=== PATIENT | female | born 1935 | race Caucasian/White ===

== ENCOUNTER 2020-03-09 07:44 | Outpatient (CLI) | payer MEDICARE, OTHER, SELFPAY ==
--- NOTE | ~2020-03-09 | DEXA_ITS ---
Bone Density Report Name: Sangeeta Toledo Age: 84 Sex: Female Ethnicity: White Date of : 1935 Indication: postmenopausal; height loss; Referring Provider: JOSE VALENTE Study: Bone densitometry was performed. Exam Date: March 09, 2020 Accession number: [id number] Bone Density: Region BMD T-score Z-score Classification AP Spine (L1-L4) 1.354 2.8 5.6 Normal Femoral Neck (Left) 0.814 -0.3 2.1 Normal Total Hip (Left) 0.981 0.3 2.5 Normal Total Hip Bilateral Avg 0.981 0.3 2.5 Normal Femoral Neck (Right) 0.739 -1.0 1.4 Normal Total Hip (Right) 0.980 0.3 2.5 Normal World Health Organization criteria for BMD impression classify patients as: Normal (T-score at or above -1.0), Osteopenia (T-score between -1.0 and -2.5), or Osteoporosis (T-score at or below -2.5). 10-year Fracture Risk: FRAX not reported because: All T-scores for Spine Total, Hip Total, Femoral Neck at or above -1.0 Previous Exams: Region Exam Age BMD T-score BMD Change BMD Change Date g/cm2 vs Baseline vs Previous AP Spine(L1-L4) 03/09/2020 84 1.354 2.8 0.065(5.0%)# -0.027(-2.0%)* 09/28/2016 81 1.381 3.0 0.092(7.2%)# 0.112(8.8%)# 10/03/2010 75 1.270 2.0 -0.019(-1.5%) -0.032(-2.5%)* 06/11/2006 70 1.302 2.3 0.013(1.0%) 0.013(1.0%) 05/04/2003 67 1.289 2.2 Total Hip(Left) 03/09/2020 84 0.981 0.3 -0.008(-0.8%)# 0.019(1.9%) 09/28/2016 81 0.962 0.2 -0.027(-2.7%)# 0.001(0.1%)# 10/03/2010 75 0.961 0.2 -0.028(-2.8%)* -0.091(-8.7%)* 06/11/2006 70 1.052 0.9 0.063(6.4%)* 0.063(6.4%)* 05/04/2003 67 0.989 0.4 Total Hip(Right) 03/09/2020 84 0.980 0.3 0.056(6.1%)# 0.047(5.0%)* 09/28/2016 81 0.933 -0.1 0.010(1.1%)# -0.016(-1.7%)# 10/03/2010 75 0.949 0.1 0.026(2.8%) 0.026(2.8%) 06/11/2006 70 0.923 -0.2 0.000(0.0%) 0.000(0.0%) 05/04/2003 67 0.923 -0.2 *Denotes significance at 95% confidence level, LSC for AP Spine = 0.022 g/cm2, LSC for Total Hip = 0.027 g/cm2 Clinical Information Provided by Patient: Patient maximum height was 65.5 Menopause Age: 42 Onset of menses at age 14 Number of children 5 Impression: The patient has normal bone mass. The BMD for the AP Spine(L1-L4) decreased, changing by -2.0% since the last DXA exam. Discussion: BONE DENSITY IS ABOVE THE MINIMUM DESIRABLE LEVEL AT ALL SKELETAL SITES TESTED. This patient?s
== END 2020-03-09 07:45 | disposition home or self-care (01) ==
PROVIDERS: PCP Internal Medicine; Visit Provider Internal Medicine
DX: Z78.0 Asymptomatic menopausal state (principal)
CPT/HCPCS: 77080

== ENCOUNTER 2022-02-05 09:13 | Outpatient (CLI) | payer MEDICARE, OTHER, SELFPAY ==
[2022-02-05 20:09] LABS: Alanine Aminotransferase 30 U/L (6-35); Albumin Level 4.3 g/dL (3.5-5.1); Alkaline Phosphatase 71 U/L (38-126); Anion Gap 11 mmol/L (8-16); Aspartate Amino Transferase 52 U/L (14-36); Bilirubin,Total 0.8 mg/dL (0.2-1.3); Blood Urea Nitrogen 29 mg/dL (7-17); Calcium 9.4 mg/dL (8.4-10.2); Carbon Dioxide 26 mmol/L (22-30); Chloride 101 mmol/L (98-107); Cholesterol 278 mg/dL (0-200); Estimated Glomerular Filt Rate 39; Glucose 157 mg/dL (65-110); HDL Direct 53 mg/dL; Potassium 4.7 mmol/L (3.4-5.0); Sodium 138 mmol/L (137-145); Triglycerides 134 mg/dL (<150)
[2022-02-05 20:20] LABS: LDL Cholesterol Direct 161 mg/dL
[2022-02-05 21:22] LABS: Hemoglobin A1C 6.4 % (<5.7)
== END 2022-02-05 09:14 | disposition home or self-care (01) ==
PROVIDERS: PCP Family Medicine; Visit Provider Family Medicine
DX: E78.2 Mixed hyperlipidemia (principal); E11.9 Type 2 diabetes mellitus without complications; E03.9 Hypothyroidism, unspecified; I10 Essential (primary) hypertension
CPT/HCPCS: 36415; 80053; 80061; 83036; 84443

== ENCOUNTER 2023-02-19 08:39 | Outpatient (CLI) | payer MEDICARE, OTHER, SELFPAY ==
[2023-02-19 18:48] LABS: Alanine Aminotransferase 26 U/L (6-35); Albumin Level 4.5 g/dL (3.5-5.1); Alkaline Phosphatase 75 U/L (38-126); Anion Gap 6 mmol/L (8-16); Aspartate Amino Transferase 35 U/L (14-36); Bilirubin,Total 0.9 mg/dL (0.2-1.3); Blood Urea Nitrogen 28 mg/dL (7-17); Calcium 9.5 mg/dL (8.4-10.2); Carbon Dioxide 31 mmol/L (22-30); Chloride 97 mmol/L (98-107); Cholesterol 287 mg/dL (0-200); Estimated Glomerular Filt Rate 36; Glucose 154 mg/dL (65-110); HDL Direct 52 mg/dL; Potassium 4.6 mmol/L (3.4-5.0); Sodium 134 mmol/L (137-145); Triglycerides 219 mg/dL (<150)
[2023-02-19 19:07] LABS: LDL Cholesterol Direct 168 mg/dL
[2023-02-19 19:22] LABS: Hemoglobin A1C 6.6 % (<5.7)
== END 2023-02-19 08:40 | disposition home or self-care (01) ==
LOC: ANHGOSHLAB 08:41
PROVIDERS: PCP Family Medicine; Visit Provider Family Medicine
DX: N18.2 Chronic kidney disease, stage 2 (mild) (principal); Z13.220 Encounter for screening for lipoid disorders; E11.9 Type 2 diabetes mellitus without complications; Z13.29 Encounter for screening for other suspected endocrine disorder; Z13.228 Encounter for screening for other metabolic disorders
CPT/HCPCS: 36415; 73564; 80053; 80061; 83036; 84443

== ENCOUNTER 2023-02-19 11:13 | Outpatient (CLI) | payer MEDICARE, OTHER, SELFPAY ==
--- NOTE | ~2023-02-19 | XR_ITS ---
Left Knee Technique: AP, lateral, and sunrise views were obtained. Clinical History: Pain Findings: No fracture or dislocation is seen. Osseous alignment is anatomic. There is moderate degene rative change of the medial and patellofemoral compartment. There is mild degenerative change of the lateral compartment.. Soft tissues are unremarkable. No joint effusion is seen. Impression: Tricompartmental osteoarthritis, as detailed above. Reviewed, dictated and finalized at location M. Impression: Tricompartmental osteoarthritis, as detailed above.
== END 2023-02-19 11:14 | disposition home or self-care (01) ==
PROVIDERS: PCP Family Medicine; Visit Provider Family Medicine
DX: M17.12 Unilateral primary osteoarthritis, left knee (principal)
CPT/HCPCS: 73564

== ENCOUNTER 2024-09-02 08:03 | Outpatient (CLI) | payer OTHER, SELFPAY ==
--- NOTE | ~2024-09-02 | XR_ITS ---
Right Shoulder Technique: AP and scapular Y views were obtained. Clinical History: Pain Findings: No fracture or dislocation is seen. Osseous alignment is anatomic. The glenohumeral joint i s intact. There is mild to moderate AC joint degenerative change. Soft tissues are unremarkable. Impression: Umhk-jk-pjxawqsi AC joint degenerative change. Reviewed, dictated and finalized at location . Impression: Gcnd-vz-sqrwnqxg AC joint degenerative change.
== END 2024-09-02 08:04 | disposition home or self-care (01) ==
LOC: MICIMG 08:04
PROVIDERS: PCP Internal Medicine; Visit Provider Nurse Practitioner
DX: M19.011 Primary osteoarthritis, right shoulder (principal)
CPT/HCPCS: 73030

== ENCOUNTER 2024-09-25 10:00 | Outpatient (RCR) | payer MEDICARE, OTHER, SELFPAY ==
--- NOTE | 2024-09-03 08:53 | OPREHPOC ---
Outpatient Therapy Plan of Care This is a Multidisciplinary Plan of Care that may contain components documented by all disciplines (PT, OT, and ST.) PT Problem 1 PT Problem #1 Knowledge Deficit PT Goal 1 Goal / Goal Update *indepdendent with HEP Target Visit 6 PT Problem 2 PT Problem #2 Impaired Strength PT Goal 1 Goal / Goal Update *increase bilateral hip and knee strength to 4+/5; pt perform 20 reps of mat exercises with good stability Target Visit 6 PT Problem 3 PT Problem #3 Impaired Functional Mobility PT Goal 1 Goal / Goal Update *improve balance and mobility skills, to decrease fall risk and improve community mobility 1* Moran balance/gait score of 55/56 2* 2 minute walking test distance of 575' without SOB reported 3* single leg standing R x 6 seconds 4* single leg standing L x 6 seconds Target Visit 6
--- NOTE | 2024-09-03 08:53 | PTOPEVAL1 ---
Assessment and note entered by Leyla Francis, PT Evaluation Information Assessment Status Evaluation ICD-10 Condition Codes (PT) Abnormalities of gait and mobility R26.9,Weakness R53.1 Onset Mar 2024 Subjective Information gradual more problems with balance and walking- when turn too quickly of move fast; in the past 6 months- have had 2 falls-when foot stick at [employer] [facility] outside, standing on wooden pallet and foot caught when went to walk; also have R shoulder pain- not due to a fall, to see ortho dr this afternoon; R handed and bowl- had to stop due to shoulder pain; have had knee pain in the past with cortisone shots, not had in over 2 years; recently R knee pain activity: bowls and golfs- 2-3x/wk; does not do any leg exercises; live alone, not require any assistance; Reported Pain Level Pain Score 0: Self Report Additional Pain Score Comments pain in both knees, R>L, at worst 1/10 with more activity; Assessment PT Clinical Summary Sangeeta has the diagnosis of decrease gait and balance skills. She reports 2 falls in the past 6 months. She is active and lives alone, and golfs and bowling 2-3x/week. Reports not walking much or doing any leg exercises. Recently has increased R shoulder pain and going to ortho dr this afternoon. With the evaluation: balance testin reps sit/ stand time of 14 seconds without use of UE/ WNL; Moran balance score of 51/56- difficulty with single leg and tandem standing; 2 minute walking test distance of 520' with report of SOB; decreased strength of bilateral hip extension and abduction motions. Skilled PT services are indicated to increase hip and trunk strength and improve dynamic and static standing balance, to improve safety with mobility and education for HEP. Plan of Care Interventions Neuro Re-education,Patient/Caregiver Education, Therapeutic Activities,Therapeutic Exercise PT Services Indicated Yes Treatment Frequency and 1-2x/wk for 6 visits Duration These treatments will address the objective and functional deficits as defined above. The patient will be advanced safely and appropriately in order for the patient to progress towards his/her prior level of function. Additional exercises will be introduced and as well as a comprehensive home exercise program upon discharge, if needed, to ensure carryover of functional gains achieved in the clinic. This treatment plan has been reviewed and agreement upon by the patient.
--- NOTE | 2024-09-25 10:44 | OPREHPOC ---
Outpatient Therapy Plan of Care This is a Multidisciplinary Plan of Care that may contain components documented by all disciplines (PT, OT, and ST.) PT Problem 1 PT Problem #1 Knowledge Deficit PT Goal 1 Goal / Goal Update *indepdendent with HEP 09-25-24 d/c goal met Target Visit 6 Progress Met PT Problem 2 PT Problem #2 Impaired Strength PT Goal 1 Goal / Goal Update *increase bilateral hip and knee strength to 4+/5; pt perform 20 reps of mat exercises with good stability 09-25-24 d/c goal met Target Visit 6 Progress Met PT Problem 3 PT Problem #3 Impaired Functional Mobility PT Goal 1 Goal / Goal Update *improve balance and mobility skills, to decrease fall risk and improve community mobility 1* Moran balance/gait score of 55/56 2* 2 minute walking test distance of 575' without SOB reported 3* single leg standing R x 6 seconds 4* single leg standing L x 6 seconds 09-25-24 d/c goals not met; improved with 1,3,4 Target Visit 6 Progress Not Met
--- NOTE | 2024-09-25 10:45 | PTOPDC ---
Assessment and note entered by Leyla Francis, PT Assessment Status Discharge ICD-10 Condition Codes (PT) Abnormalities of gait and mobility R26.9,Weakness R53.1 Onset Mar 2024 Subjective Information more stable with walking; the exercises have helped; improved since coming here; continue to have R shoulder pain--have not been bowling; Reported Pain Level Pain Score 0: Self Report Assessment PT Clinical Summary Sangeeta has received 6 PT sessions. Compared to initial evaluation: LE functional scale rating of 18% limitation in activity level; Moran balance score from 51 to 53/56; 2 minute walking test distance from 520' to 450'; single leg standing time from lift leg but not able to hold to R 4 and L 5 seconds; increase gross trunk and LE strength to 4+/5; slight loss of balance with turning 360', she tends to do too quickly; education completed for HEP and safety; The goals were partially achieved. Discharge PT services. She is to continue with the HEP. Plan of Care PT Services Indicated No
== END 2024-09-25 12:28 | disposition home or self-care (01) ==
LOC: ANHPT 10:00
PROVIDERS: PCP Internal Medicine; Visit Provider Internal Medicine
DX: Z47.89 Encounter for other orthopedic aftercare (principal); R26.89 Other abnormalities of gait and mobility
CPT/HCPCS: 97110; 97112; 97140; 97161; 97530

== ENCOUNTER 2025-02-13 10:23 | Emergency (ER) | payer MEDICARE, OTHER, SELFPAY ==
--- OUTSIDE RECORDS SUMMARY | 2025-02-13 10:26 | XMS_ITS | Encounter Summary ---
Author Organization [facility] Address [address] [place] [address] Care Team Providers Care Stitching Machine Setter Name Role Phone Unavailable Primary Care Provider Unavailabl e Encounter Details Date Type Department Care Team (Late st Contact Info) Description 02/11/2020 Lab Requisition [facility]erm[facility] Lab [address] [place] [address] Frantz Victoria MD [address] [place] [address] Social History Tobacco Use Types Packs/Day Years Used Date Smoking Tobacco: Never Assessed Comments Unknown Sex and Gender Information Value Date Recorded Sex Assigned at Not on file Legal Sex Female 6:09 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 Gender Identity Not on file Sexual Orientation Not on file documented as of this encounter Plan of Treatment Not on file documented as of this encounter Procedures Procedure Name Priority Date/Time Associated Diagnosis Comments DERMATOPATHOLOGY Routine 02/10/2020 12:0 0 AM CDT documented in this encounter Results * DERMATOPATHOLOGY (02/10/2020 12:00 AM CDT) Case Report Dermatopathology Report Case: [id number] Authorizing Provider: Frantz Victoria MD Collected: 02/10/2020 12:00 AM Ordering Location: [facility] Received: 02/11/2020 11:06 AM Pathologist: Hannah Sams MD Specimen: Skin, right forehead 0 3:36 PM CDT DERMATOPATHOLOGY LABORATORY Final Diagnosis Specimen A. SKIN, right forehead : EPIDERMOID CYST (L72.0) DERMAL FIBROSIS (L90.5) 0 3:36 PM CDT DERMATOPATHOLOGY LABORATORY at 1536 CDT Clinical History R/O BCC, DF, scar, o ther 0 3:36 PM CDT DERMATOPATHOLOGY LABORATORY Gross Description Specimen A: Received is one formalin filled container labeled with the patient's name and designated right forehead . The specimen consists of a punch biopsy measuring 4x4x7 mm, bisected and [id number]. Jar 0. 0 3:36 PM CDT DERMATOPATHOLOGY LABORATORY Microscopic Description Specimen A. SKIN, right forehead : Within the dermis, there is a space lined by epithelium that resembles normal epidermis and the infundibular portion of the hair follicle. TThere is focal dermal fibrosis. 0 3:36 PM CDT DERMATOPATHOLOGY LABORATORY Disclaimer An external and internal positive and negative controls are appropriate for the histochemical, immunohistochemical and immunofluorescence stain(s) in this case (if any), except where stated explicitly. The performance characteristics of the stain(s) cited in this report were developed and its performance characteristic determined by the Dermatopathology Laboratory at [facility], directed by Dr. Rupert Sams. These tests need not be, and therefore are not, approved by the [place] Food and Drug Administration. The tests are used for clinical purposes. Billing Codes Specimen Charges Stain Charges 88873 1 0 3:36 PM CDT DERMATOPATHOLOGY LABORATORY Embedded Images 0 3:36 PM CDT DERMATOPATHOLOGY LABORATORY Pathology/Cytolog y TISSUE SPECIMEN FROM SKIN / Unknown 02/10/2020 02/11/2020 11:06 AM CDT Frantz Victoria MD LAB - PATHOLOGY/CYTOLOGY ORD ERABLES Final Result DERMATOPATHOLOGY LABORATORY [facility] - Department of Dermatology [address] [place] [address], [facility] [phone] documented in this encounter Visit Diagnoses Not on filedocumented in this encounter
--- OUTSIDE RECORDS SUMMARY | 2025-02-13 10:26 | XMS_ITS | Clinical Summary ---
Author Organization [facility] Address [address] [place] [address] Care Team Providers Care Teacher Music Name Role Phone Blayne Byrnes MD Primary Care Provider [phone] Allergies Active Allergy Reactions Criticality Noted Date Comments Clindamycin Rash Low 10/05/2019 Statins Myalgias 10/05/2019 Medications levothyroxine 112 MCG tablet Take 112 mcg by mouth every morning. Active losartan 50 MG TABS 100 mg, hydroCHLOROthiazide 12.5 MG CAPS 12.5 mg Take by mouth daily. Active omeprazole 20 MG capsule Take 20 mg by mouth daily. Active fish oil 1000 MG Cap capsule Take by mouth daily. Active Multiple Vitamins-Minerals (CENTRUM SILVER OR) Active Magnesium 500 MG Cap Active Ipnuzuetf-Vbfjhozjgvr-R it D (OSTEO BI-FLEX ONE PER DAY OR) Active metFORMIN 500 MG tablet Take 500 mg by mouth daily with breakfast . Active Active Problems No known active problems Social History Tobacco Use Types Packs/Day Years Used Date Smoking Tobacco: Never Smokeless Tobacco: Never Alcohol Use Standard Drinks/Week Comments Yes 0 (1 standard drink = 0.6 oz pur e alcohol) Comments No Sex and Gender Information Value Date Recorded Sex Assigned at Not on file Legal Sex Female 3:01 PM CDT Gender Identity Not on file Sexual Orientation Not on file Last Filed Vital Signs Vital Sign Reading Time Taken Comments Blood Pressure 126/71 10/12/2019 9:31 AM CDT Pulse 69 10/12/2019 9:31 AM CDT Temperature 36.8 C (98.2 F) 10/12/2019 9:31 AM CDT Respiratory Rate 18 10/12/2019 9:31 AM CDT Oxygen Saturation 96% 10/12/2019 9:31 AM CDT Inhaled Oxygen Concentration - - Weight 92.5 kg (204 lb) 10/12/2019 8:16 AM CDT Height 166.4 cm (5' 5.5) 10/12/2019 8:16 AM CDT Body Mass Index 33.43 10/12/2019 8:16 AM CDT Plan of Treatment Health Maintenance Due Date Last Done Comments DTaP, Tdap and Td Vaccines ( 1 - Tdap) 1954 Pneumococcal Vaccine: 50+ Ye ars (1 of 1 - PCV) 09/15/1987 Zoster Vaccines (1 of 2) 09/15/1987 Annual Medicare Wellness Visit 2002 RSV Immunization or 60+ Years (1 - 1-dose 75+ series) 2012 COVID-19 Vaccine ( - 2023-2 5 season) 2025 Influenza Adult (#1) 2025 Meningococcal B Vaccine Aged Out No l onger eligible based on patient's age to complete this topic Meningococcal Vaccine Aged Out No stiven doris eligible based on patient's age to complete this topic RSV Immunizations Under 20 Months Aged Out No longer eligible based on patient's age to complete this topic Medical Devices Implanted Type Area Parimutuel Clerk Device Identifier Shelf Expiration Date Model / Serial / Lot Zlboo Implanted:Qty: 1 on 10/12/2019 by Daniel Denise MD at [facility] Left: Eye 01/12/2022 / [id number] / Insurance MEDICARE [employer] Care Teams Teacher Music Relationship Specialty Start Date End Date Blayne Byrnes MD [address] [place] [address] PCP - General INTERNAL MEDICINE 10/09/19
--- OUTSIDE RECORDS SUMMARY | 2025-02-13 10:26 | XMS_ITS | Encounter Summary ---
Author Organization [facility] Address [address] [place] [address] Care Team Providers Care Concrete Conveyor Operator Name Role Phone Unavailable Primary Care Provider Unavailabl e Encounter Details Date Type Department Care Team (Late st Contact Info) Description 08/29/2022 Lab Requisition [facility] DermPath Lab [address] [place] [id number] Frantz Victoria MD [address] [place] [address] Social History Tobacco Use Types Packs/Day Years Used Date Smoking Tobacco: Never Assessed Comments Unknown Sex and Gender Information Value Date Recorded Sex Assigned at Not on file 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 Gender Identity Not on file Sexual Orientation Not on file documented as of this encounter Plan of Treatment Not on file documented as of this encounter Procedures Procedure Name Priority Date/Time Associated Diagnosis Comments DERMATOPATHOLOGY Routine 08/28/2022 12:0 0 AM CDT documented in this encounter Results * DERMATOPATHOLOGY (08/28/2022 12:00 AM CDT) Case Report Dermatopathology Report Case: [id number] Authorizing Provider: Frantz Victoria MD Collected: 08/28/2022 12:00 AM Ordering Location: [facility]erm[facility] Lab Received: 08/29/2022 01:47 PM Pathologist: Nancy Jordan MD Specimens: A) - Skin, right cheek 4 am anterior to right ear B) - Skin, right forehead 3:10 PM CDT DERMATOPATHOLOGY LABORATORY Final Diagnosis Specimen A. SKIN, right cheek 4 am anterior to right ear: HEALING SKIN CHANGES AND DERMAL FIBROSIS (L90.5) GRANULOMATOUS DERMATITIS CONSISTENT WITH A RUPTURED CYST OR HAIR FOLLICLE (L72.0) (see microscopic description) Specimen B. SKIN, right forehead: ACTINIC KERATOSIS (L57.0) 3 3:10 PM T DERMATOPATHOLOGY LABORATORY at 1510 CDT Clinical History A-B: r/o bcc scc 3:10 PM CDT DERMATOPATHOLOGY LABORATORY Gross Description Specimen A: Received is one formalin filled container labeled with the patient's name and designated right cheek 4 am anterior to right ear. The specimen consists of a shave biopsy measuring 7x7x1 mm. Jar 0. Specimen B: Received is one formalin filled container labeled with the patient's name and designated right forehead. The specimen consists of a shave biopsy measuring 6x6x1 mm. Jar 0. 3:10 PM CDT DERMATOPATHOLOGY LABORATORY Microscopic Description Specimen A. SKIN, right cheek 4 am anterior to right ear: There is epidermal hyperplasia beneath which there are vascular proliferation, fibroblasts, and an edematous stroma. Lymphocytes, histiocytes, and multinucleated giant cells are present within the dermis. There is focal dermal fibrosis. Additional deeper sections were obtained and reviewed. Specimen B. SKIN, right forehead: There is focal parakeratosis. The lower half of the epidermis shows disorderly maturation of keratinocytes with nuclear pleomorphism. 3 3:10 PM CDT DERMATOPATHOLOGY LABORATORY Disclaimer An external and internal positive and negative controls are appropriate for the histochemical, immunohistochemical and immunofluorescence stain(s) in this case (if any), except where stated explicitly. The performance characteristics of the stain(s) cited in this report were developed and its performance characteristic determined by the Dermatopathology Laboratory at [facility], directed by Dr. Rupert Sams. These tests need not be, and therefore are not, approved by the [place] Food and Drug Administration. The tests are used for clinical purposes. Billing Codes Specimen Charges Stain Charges 01110 [id number] 1 1 3 3:10 PM CDT DERMATOPATHOLOGY LABORATORY Embedded Images 3:10 PM CDT DERMATOPATHOLOGY LABORATORY Pathology/Cytology TISSUE SPECIMEN FROM SKIN / Unknown 08/28/2022 08/29/2022 1:47 PM CDT Miscellaneous samples (specimen) TISSUE SPECIMEN FROM SKIN / Unknown 08/28/2022 08/29/2022 1:47 PM CDT Frantz Victoria MD LAB - PATHOLOGY/CYTOLOGY ORD ERABLES Final Result DERMATOPATHOLOGY LABORATORY [facility] - Department of Dermatology [facility] Medicine [address] [place] [address], [address] [phone] documented in this encounter Visit Diagnoses Not on filedocumented in this encounter
--- OUTSIDE RECORDS SUMMARY | 2025-02-13 10:26 | XMS_ITS | Clinical Summary ---
Author Organization [facility] [address] Address [address] [place] [address] Care Team Providers Care Software Development Advisor Name Role Phone Blake Pereira Primary Care Provider [phone] Allergies Active Allergy Reactions Criticality Noted Date Comments Acetaminophen Muscle pain Medium 10/05/2019 Clindamycin Rash Medium 10/05/2019 Etkdkvl-Tla-Bwy Reductase Inhibitors Muscle pain Medium 10/22/2022 Medications magnesium oxide 500 mg capsule Take by mouth A ctive metFORMIN (GLUCOPHAGE) 500 mg tablet Take 1 tablet (500 mg total) by mouth daily Active omeprazole (PriLOSEC) 20 mg capsule Take 1 capsule (20 mg total) by mouth daily Active losartan-hydroCHL OROthiazide (HYZAAR) 100-12.5 mg per tablet 3 Active amLODIPine (NORVASC) 5 mg tabletIndications :Essential hypertension Take 1 tablet (5 mg total) by mouth daily 30 tablet 11 3 Active fish oil-dha-epa 1,200-144-216 mg capsule Take by mouth Active levothyroxine (SYNTHROID) 112 mcg tablet Take 1 tablet (112 mcg total) by mouth early childhood worker before breakfast Active multivit-min/foli c acid/lutein (CENTRUM SILVER ORAL) Take by mouth Active coenzyme Q10 10 mg capsule Take 1 capsule (10 mg total) by mouth daily Active glucosamine/chond r pinzon A sod (OSTEO BI-FLEX ORAL) Take by mouth Ac tive Active Problems Problem Noted Date Diagnosed Date ROMERO (dyspnea on exertion) 10/22/2022 Essential hypertension 10/22/2022 Hyperlipidemia associated with type 2 diabetes m holly 10/22/2022 Surgical History Surgery Date Site/Laterality Comments EAR SURGERY Bilateral TUBAL LIGATION HAND SURGERY 05/06/2012 - 05/05/2013 Medical History Medical History Date Comments Dyspnea Back pain Thyroid disease Hyperlipidemia Hypertension Diabetes mellitus Family History Medical History Relation Name Comments Cancer Father Heart disease Mother Relation Name Status Comments Father Mother Social History Tobacco Use Types Packs/Day Years Used Date Smoking Tobacco: Never Tobacco Cessation:Counseling Given: Not Answered Comments Unknown Sex and Gender Information Value Date Recorded Sex Assigned at Not on file 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 Gender Identity Not on file Sexual Orientation Not on file Obstetrics History Last Filed Vital Signs Vital Sign Reading Time Taken Comments Blood Pressure 138/70 08/17/2024 7:59 AM CDT Pulse 89 08/17/2024 7:59 AM CDT Temperature - - Respiratory Rate - - Oxygen Saturation 96% 08/17/2024 7:59 AM CDT Inhaled Oxygen Concentration - - Weight 93.8 kg (206 lb 14.4 oz) 08/17/2024 7:59 AM CDT Height 165.1 cm (5' 5) 08/17/2024 7:59 AM CDT Body Mass Index 34.43 08/17/2024 7:59 AM CDT Plan of Treatment Health Maintenance Due Date Last Done Comments Albumin Creatinine Ratio, Urine 1935 Depression Screening 1935 Fall Risk Assessment 1935 Hemoglobin A1C 1935 Osteoporosis Screening-Bone Density Scan 1935 eGFR 1935 Dilated Eye Exam 1935 Foot Exam 1935 Lipid Panel 1935 Hepatitis B Screening 09[birth year]15/1953 Well Visit 65+ 2002 Covid-19 Vaccine (2023-2 5 season) 2025 02/05/2024, 02/13/2023, 02/27/2022, Additional history exists Influenza Vaccine (#1) 2025 , 02/13/2023, 02/05/2022, Additional history exists DTaP/Tdap/Td Vaccine (2 - Td or Tdap) 02/16/2030 02/17/2020 Pneumococcal vaccine 65+ Completed 018, 05/06/2013, 04/05/2009, Additional history exists Zoster Vaccine Completed 08/11/2018, 12/2017, 05/06/2014, Additional history exists Insurance MEDICARE MEDICARE [facility] Care Teams Software Development Advisor Relationship Specialty Start Date End Date Blake Pereira DO PCP - General Family Medicine 10/18/22
--- OUTSIDE RECORDS SUMMARY | 2025-02-13 10:26 | XMS_ITS | Encounter Summary ---
Author Organization [facility] Address [facility] [place] [address] Care Team Providers Care Curriculum Designer Name Role Phone Blayne Byrnes MD Primary Care Provider [phone] Encounter Details Date Type Department Care Team (Late st Contact Info) Description 10/05/2019 Prep for Procedure [facility] [address] [place], [place] [id number] Daniel Denise MD [address] [facility] [address] [place] [address] Social History Tobacco Use Types Packs/Day Years Used Date Smoking Tobacco: Never Smokeless Tobacco: Never Alcohol Use Standard Drinks/Week Comments Yes 0 (1 standard drink = 0.6 oz pur e alcohol) Comments Unknown Sex and Gender Information Value Date Recorded Sex Assigned at Not on file Legal Sex Female 3:01 PM CDT Gender Identity Not on file Sexual Orientation Not on file documented as of this encounter Plan of Treatment Not on file documented as of this encounter Results * PRE-SURGICAL/PRE-PROCEDURE CORONAVIRUS (COVID 19) (10/09/2019 10:39 AM CDT) CORONAVIRUS SARS COV 2 PCR (RESP) NOT DETECTED NOT DETECTED 10/10/2019 1:54 PM CDT [facility] Comment: A Not Detected (negative) test result for this test means that SARS- CoV-2 RNA was not present in the specimen above the limit of detection. A negative result does not rule out the possibility of COVID-19 and should not be used as the sole basis for treatment or patient management decisions. If COVID-19 is still suspected, based on exposure history together with other clinical findings, re-testing should be considered in consultation with public health authorities. Laboratory test results should always be considered in the context of clinical observations and epidemiological data in making a final diagnosis and patient management decisions. Please review the Fact Sheets and FDA authorized labeling available for health care providers and patients using the following websites: https://www.[employer]/home/Covid-19/HCP/QuestIVD/fact- sheet.html https://www.[employer]/home/Covid-19/Patients/ Quest[employer]D/fact-sheet.html This test has been authorized by the FDA under an Emergency Use Authorization (EUA) for use by authorized laboratories. Due to the current public health emergency, [facility] is receiving a high volume of samples from a wide variety of swabs and media for COVID-19 testing. In order to serve patients during this public health crisis, samples from appropriate clinical sources are being tested. Negative test results derived from specimens received in non-commercially manufactured viral collection and transport media, or in media and sample collection kits not yet authorized by FDA for COVID-19 testing should be cautiously evaluated and the patient potentially subjected to extra precautions such as additional clinical monitoring, including collection of an additional specimen. Methodology: Nucleic Acid Amplification Test (NAAT) includes PCR or TMA Additional information about COVID-19 can be found at the [facility] website: www.[employer]Gritness/Covid19. Test performed at [facility] [address] [address] [place] [address] Director: BLAYNE MADSEN DO,MPH NASOPHARYNGEAL SWAB / Unknown 10/09/2019 10:39 AM CDT us Daniel Denise MD MICROBIOLOGY - GENERAL ORDERAB LES Final Result [facility] [id number] [place] [id number], [place] documented in this encounter Visit Diagnoses Diagnosis Pre-op testing- Primary Preoperative examination, unspecified documented in this encounter Additional Health Concerns Infection Onset Date Last Indicated Resolved Time COVID-19 Rule Out 10/09/2019 10/09/2019 10/10/2019 1:55 PM CDT documented as of this encounter Care Teams Curriculum Designer Relationship Specialty Start Date End Date Blayne Byrnes MD [address] [place] [id number] PCP - General INTERNAL MEDICINE 10/09/19 documented as of this encounter
--- OUTSIDE RECORDS SUMMARY | 2025-02-13 10:26 | XMS_ITS | Clinical Summary ---
Author Organization [facility] Address [address] [place] [address] Care Team Providers Care Basic Sciences Dean Name Role Phone Unavailable Primary Care Provider Unavailabl e Source Comments [facility],non-owned Affiliates and Associated Physician Practices is amultiple site organization consisting of ambulatory clinics and hospital sitesin [place], [place], [place] and [place]. This disclosure is being madepursuant to the Care Everywhere program and may not contain all information available regarding this patient. 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 Gender Identity Not on file Sexual Orientation Not on file Plan of Treatment Health Maintenance Due Date Last Done Comments BONE DENSITY TESTING 1935 MEDICARE AWV 12 MONTHS 1935 DTAP/TDAP/TD VACCINES (1 - Tdap) 1956 PNEUMOCOCCAL VACCINE 50+ (1 of 1 - PCV) 09/15/1987 ZOSTER VACCINE (1 of 2) 09/15/1987 Respiratory Syncytial Virus (RSV) Vaccine Pt: or over 60 yrs (1 - 1-dose 75+ series) 2012 DEPRESSION SCREENING 05/06/2024 COVID-19 VACCINE ( - 2023-2 5 season) 2025 INFLUENZA VACCINE (#1) 2025 HEPATITIS B VACCINE Aged Out No longe r eligible based on patient's age to complete this topic HIB VACCINE Aged Out No longer eligi ble based on patient's age to complete this topic HPV VACCINE Aged Out No longer eligi ble based on patient's age to complete this topic MENINGOCOCCAL (Group B) VACC INE SHARED DECISION-MAKING Aged Out No longer eligibl e based on patient's age to complete this topic MENINGOCOCCAL GROUPS A/C/Y/W VACCINE Aged Out No longer eligible b ased on patient's age to complete this topic Insurance MEDICARE [employer]
--- OUTSIDE RECORDS SUMMARY | 2025-02-13 10:27 | XMS_ITS | Data Portability ---
Author Organization [place] - [facility], Main Office Address [address] [place] [address] Care Team Providers [facility] Custodian Name Role Phone NEIDA MATHEW Primary Care Provider NEIDA MATHEW Referring Provider [phone] Assessment Encounter Date Assessment Date Assessment LastModified by Organization Details LastModified Time 09/03/2024 09/03/2024 The patient has what appears to be at least a partial-thickness tear of the rotator cuff tendon of the right shoulder. She may have a small full-thickness tear noted by her exam today she does have some weakness. At 88 years of age we are going to try to get her by with conservative measures she is not a good candidate for rotator cuff repair. She was having significant discomfort she wanted pain relief mainly. She agrees she would rather avoid surgery. At her request under sterile conditions I injected the patient's right shoulder subacromial space in the office with 4 cc 0.5% bupivacaine and 20 mg of Kenalog. Patient tolerated procedure well. We are going to give her a course of oral prednisone and a course of physical therapy to work on strengthening and range of motion. Due to her age we will avoid nonsteroidal anti-inflammatory medication due to the risks of GI bleed and/or injury to the kidney function. I will see her back in 6 weeks to see what impact treatment has had. She is going to lay off of bowling and golf for now. Focus more on her rehab program. The patient voiced understanding and agree with the above plan she will call for any further problems difficulties or questions. Not available 09/03/2024 17:00:35 10/16/2024 10/16/2024 The patient has resolving right shoulder pain she does have significant AC joint arthrosis possibly has partial-thickness tearing of the rotator cuff tendon. At 89 years of age she is not interested in surgical intervention. we will avoid giving her nonsteroidal anti-inflammatory medication she can use Tylenol if needed. She is getting by with conservative measures she is going to continue with her physical therapy exercises as instructed on her own at home. She is going to get a customer agent bowling ball modify her activities with that as well. She does like to play golf but she will avoid driving she will mainly do chipping and putting. As far as both knees go she has fairly significant osteoarthritis both knees moderately severe in nature with basically [id number]-[id number] changes in medial compartments and patellofemoral articulations laterally. We talked about treatment options in detail today for her knees. We talked about physical therapy and shots of cortisone she states today she is feeling good and does not need any treatment. If she does develop more pain she will call we will get her back in for cortisone injections. She states this has worked very well for her in the past it has been about 4 years since her last cortisone injections done elsewhere. She voiced understanding and agrees with the above plan she will call for any further problems difficulties or questions. Not available 10/16/2024 12:29:10 Plan of Treatment Reminders Order Date Submit Date Provider Last Modified By Organization Details Last Modified Time Details Appointments None recorded. Lab None recorded. Referral physical therapist referral - please contact patient to schedule 2024 025 [facility], [address], [place], [address], 08:28:39 Procedures injection/ aspiration joint/burs a (PROC) 2024 025 [email or web address] In-Office Order, Internal Use Only DO Not Attach Compendium DO Not Attach Compendium, Do Not Delete/merge, [id number] 15:35:26 Surgeries None recorded. Imaging XR, knee, 3 view 2024 025 [email or web address] [facility] [place], [address], [place], [address], 12:37:14 Medication Orders bupivacain e HCl 0.5 % (5 mg/mL) injection solution [address] [id number], [address] [place], [address], 17:01:04 Kenalog 10 mg/mL suspension for injection [address]/[facility]arm[facility][id number], [address] [place], [address], 5 17:01:04 prednisone 10 mg tablets in a dose pack 2024 [address]25 [id number] [place], [address], 17:01:04 Patient TargetsNo targets recorded. Patient InstructionsNo instructions recorded. Reason for Referral Physical Therapist Referral for Pain of right shoulder region please contact patient to schedule Referring Physician: Oni Ramirez, Orthopedic Surgery, Encounter Date: 09/03/2024 Results Created Date Observation Date Name Description Value Unit Range Abnormal Flag Note LastModifiedBy Organization Detail LastModifiedTime 10/17/19 25 XR, knee, 3 view No observ ation record ed. [email or web address] [facility] [address], [place], [address], 10/16/2024 12:31:00 Result Notes None recorded. Problems Name Problem SNOMED Code Status Onset Date Resolution Date Notes Provider Name and Address Organization Details Recorded Time Impacted cerumen 95780121 Active Not Available [facility] 3 08:23:49 Renal impairment 669798956 Active Not Available [facility] 3 08:23:49 Lesion of neck 796864321 Active Not Available [facility] 3 08:23:49 Chest pain 33730998 Active Not Available [facility] 3 08:23:49 Type 2 diabetes mellitus without complicati on 680399162 Active Not Available [facility] 3 08:23:50 Changing shape of pigmented skin lesion 942964195 Active Not Available [facility] 3 08:23:50 Bronchitis 56301093 Active Not Available [facility] 3 08:23:50 Localized osteoarthr osis 02977229 Active Not Available [facility] 3 08:23:50 Sinusitis 21487546 Active Not Available [facility] 3 08:23:50 Abnormal renal function 09366646 Active Not Available [facility] 3 08:23:50 Osteoarthr itis 570598167 Active Not Available [facility] 3 08:23:50 Hypothyroi dism 61744893 Active Not Available [facility] 3 08:23:50 Hyperlipid emia 74083273 Active Not Available [facility] 3 08:23:50 Essential hypertensi on 98303852 Active Not Available [facility] 3 08:23:50 Dyspnea on exertion 51484833 Active Not Available [facility] 3 08:23:50 Muscle pain 57748800 Active Not Available [facility] 3 08:23:51 Hyperglyce scar 59767117 Active Not Available [facility] 3 08:23:51 Pain in limb 34103208 Active Not Available [facility] 3 08:23:51 Pain of right shoulder region Active 2024 Ladan Rapp CNA null, [facility] 5 15:06:47 Arthropath y 361456650 Active 2024 RY Kaur [address], [address], [place], [address] , [facility] [employer] [facility] 5 16:57:50 Nontraumat ic partial rupture of right rotator cuff 2248316227492 109 Active 2024 RY Kaur [address], [address], [place], [address] , [facility] [employer] [facility] 5 16:58:16 Pain of bilateral knee regions 3265815657618 02 Active 2024 DAYNA Christiansen [facility] [employer] [facility] 5 11:50:10 Primary gonarthros is, bilateral 776597551 Active 2024 RY Kaur [address] [facility], [facility] [address], [place], [address] , [facility] [employer] [facility] 5 12:29:51 Problem Notes None recorded. Procedures Surgical History Date Name Laterality Status Provider Name and Address Organization Details Recorded Time Ear completed Ladan Rapp CNA [place] - [facility] [employer] [facility] 09/03/2024 15:15:35 Imaging Results None recorded. Procedure Notes None recorded. Medical Equipment None Reported. Allergies Allergen ID Allergen Name Allergen Category Reaction Reaction Severity Criticality Documentation Date Start Date Code Code System Note Provider Name and Address Organization Details Recorded Time Pravachol medicatio n Not available Not available Not available 07/04/202289939 3 RxNorm Not Available [facility] 3 08:28:05 78066 clindamyc in Not available rash Not available Not available 07/04/2022 2582 RxNorm Not Available [facility] 3 08:28:05 65311 Product containin g 3-hydroxy -3-methyl glutaryl- coenzyme A reductase inhibitor (product) medicatio n muscle cramps Not available Not available 09/03/2024 96800 009 SNOMED DAYNA Christiansen, [place] - [facility] [employer] [facility] 5 15:13:00 Medications Name Sig Start Date Stop Date Status Note LastModified by Organization Details LastModified Time metformin 500 mg tablet TAKE 1 TABLET DAILY active Not Available Not Available No t Available prednisone 10 mg tablet PLEASE SEE ATTACHED FOR DETAILED DIRECTION S active Not Available Not Available No t Available azithromyci n 250 mg tablet Take 2 TABLET EVERY DAY by oral route for 1 day then take 1 daily for 4 days 04/26 completed Not Available Not Available Not Available benzonatate 200 mg capsule Take 1 capsule 3 times a day by oral route. 04/26 completed Not Available Not Available Not Available bupivacaine HCl 0.5 % (5 mg/mL) injection solution Take 20 mg by injection route. 2024 active Not Available Not Available Not Avai lable simvastatin 10 mg tablet TAKE 1 TABLET AT BEDTIME active Not Available Not Available No t Available amlodipine 5 mg tablet TAKE 1 TABLET DAILY active Not Available Not Available No t Available Depo-Medrol 80 mg/mL suspension for injection 08/20 completed Not Available Not Available Not Available prednisone 10 mg tablets in a dose pack Take 1 tab by mouth, 3 times a day for 3 daysTake 1 tab by mouth 2 times a day for 2 daysTake 1 tab by mouth once a day for 1 day 2024 active Not Available Not Available Not Avai lable Kenalog 10 mg/mL suspension for injection Take 20 mg by injection route. 2024 active [facility]: 0003- 0494- 20 Not Available Not Available Not Available omeprazole 20 mg capsule,del ayed release TAKE 1 CAPSULE DAILY active Not Available Not Available No t Available aspirin 81 mg chewable tablet Chew 1 tablet every day by oral route as directed. 2014 active Not Available Not Available Not Avai lable Synthroid 112 mcg tablet TAKE 1 TABLET DAILY active Not Available Not Available No t Available cyclobenzap rine 5 mg tablet Take 1 OR 2 TABLET 3 TIMES A DAY by oral route NEEDED FOR MUSCLE SPASMS active Not Available Not Available No t Available Crestor 5 mg tablet Take 1 tablet(s) EVERY DAY by oral route Saturday AND Saturday active Not Available Not Available Not Avai lable losartan 100 mg-hydrochl orothiazide 12.5 mg tablet TAKE 1 TABLET DAILY active Not Available Not Available No t Available Fish Oil 1 po qd 2012 active Not Available Not Available Not Avai lable Centrum Silver 1 po qd 2012 active Not Available Not Available Not Avai lable CoQ-10 1 po qd 2012 active Not Available Not Available Not Avai lable Vitals Date Recorded Body height Body mass index (BMI) Body weight Provider Name and Address Organization Details Last Updated DateTime 09/03/2024 165.1 cm 34.6 kg/m2 61073.21 g Ladan Rapp CNA [place] [employer] [facility] 09/03/2024 15:12:25 Date Recorded Body height Body mass index (BMI) Body weight Provider Name and Address Organization Details Last Updated DateTime 10/16/2024 165.1 cm 34.9 kg/m2 71456.4 g Ladan Rapp CNA [place] [employer] [facility] 10/16/2024 12:28:04 Social History None recorded. Functional Status Question Answer Note LastModified by Organizat ion Details LastModified Time What is your level of alcohol consumption? Occasional [email or web address] Information not available 09/03/2024 What is your occupation? Retired [id number] Information not available 07/04/2022 Mental Status None recorded. Family History Relationship Description Onset Age of this Age Resolved Age Notes LastModified by Organization Details LastModified Time Father History of malignant neoplasm [email or web address] Not available 2024 15:14:02 Daughter History of malignant neoplasm [email or web address] Not available 2024 15:14:02 Mother Hypertensive disorder [email or web address] Not available 2024 15:14:19 Medical History Condition Response ARTHRITIS Y DIABETES, TYPE Y HYPERTENSION Y Gynecological HistoryNo gynecological history recorded. Obstetrics History GPAL:G 0 P 0 0 0 0 Immunizations Vaccine Type Date Status Note Provider Nam e and Address Organization Details Recorded Time Influenza, split virus, trivalent, preservative 5 completed Not Available [facility] 07/04/2022 08:27:56 Influenza, split virus, trivalent, preservative 4 completed Not Available [facility] 07/04/2022 08:27:56 Influenza, split virus, trivalent, preservative 3 completed Not Available [facility] 07/04/2022 08:27:56 Pneumococcal conjugate PCV 13 9 completed Not Available [facility] 07/04/2022 08:27:56 zoster live 8 completed Not Available [facility] 07/04/2022 08:27:56 Pneumococcal conjugate PCV 13 3 completed Not Available [facility] 07/04/2022 08:27:57 Past Encounters Encounter ID Performer Location Encounter Start Date Encounter Closed Date Diagnosis/Indication Diagnosis SNOMED-CT Code Diagnosis ICD10 Code Diagnosis IMO Codes Diagnosis Note [id number] Stanley Agudelo MD [facility] [place] [address] [place] [id number] 09/03/2024 14:56:26 09/03/2024 15:38:00 Pain of right shoulder region 0161713977 M25.511 60846273 Arthropathy 106540032 M1 9.011 91052363 Nontraumat ic partial rupture of right rotator cuff 7112954709 439247 M75.111 [id number] Stanley Agudelo MD [facility] [place] [address] [place] [id number] 10/16/2024 11:42:07 10/16/2024 12:37:13 Pain of right shoulder region 6148164904 M25.511 42205105 Arthropathy 689742073 M1 9.011 09747159 Nontraumat ic partial rupture of right rotator cuff 3924339256 737386 M75.111 84883123 Pain of bi lateral knee regions 2591554730 44119 M25.561 M25.562 58791666 Primary go narthrosis, bilateral 872005863 M17.0 5290616 Health Concerns Section Related Observation LastModified by Organization Detai ls LastModified Time None Recorded Concern Status LastModified by Organization Details LastModified Time None Recorded Advance Directives Directive None Recorded Payers Insurance Date Sequence Insurance Name Policy Number Policy Shaw Covered Member ID Shaw Member ID Guarantor Name 10/15/2024 1 MEDICARE-I L (MEDICARE) Tyra Toledo [id number] Sangeeta Toledo 09/03/2024 2 [employer] - [facility] [id number] Sangeeta Toledo [id number] Sangeeta Toledo 10/30/2024 2 [employer] (POS II) [id number] 001 Sangeeta Toledo [id number] Sangeeta Toledo Notes Date Note Type Note Provider Name and Address Organization Details Recorded Time 09/03/2024 text/html The patient is a 88-year-old female who presents with a couple of weeks of right shoulder pain. She states the pain has been pretty significant about a 5 on a scale of 1-10 limits her daily activities. Prior to that she really did not have much shoulder discomfort. At 88 years of age she is still plays golf and bowls weekly. She has been going through the bowling season that ends in a couple of weeks and noted lately that she has been developing shoulder pain in the right this radiates into the upper arm. She denies any loss of motion was having difficulty throwing the 13 lb ball that she uses. She had to stop playing because of the pain. She does play golf weekly as well she has been doing that all winter this aggravates her shoulder a little bit also but not as bad as bowling. She has had no specific trauma or injury did not have a sudden onset of pain the pain has slowly advanced with time. Despite taking a rest break from bowling and trying to modify her activities her symptoms continue. She denies any loss of motion but does have a lot of pain with trying to get her arm all the way overhead. She comes in today for initial evaluation treatment of right shoulder pain as described. She did have x-rays done elsewhere prior to her visit here. X-rays demonstrated what appears to be severe degenerative AC joint arthritis and some hypertrophic changes around this. Glenohumeral joint appears to be well-maintained there is a very small hint of a minor spur at the inferior surface of the humeral head otherwise unremarkable. No subluxation or other osteoarthritis is seen. I reviewed the x-rays in detail today with the patient I agree with the above findings. The subacromial space is well-maintained also. New past medical history sheet was reviewed and signed on the intake sheet of today's date drug allergies current medications family social history previous surgical history 10 point review of systems was reviewed and discussed in detail today with the patient. RY Kaur [address] [facility], [facility] [address], [place], [address], [place] [employer] 09/03/2024 17:00:45 10/16/2024 text/html The patient returns for recheck of her right shoulder. I saw her 6 weeks ago she had quite a bit of pain she had been bowling she is very active even at 89 years of age she uses a heavy bowling ball, she has decided to change it up and get a customer agent ball. In the meantime she has had some good relief from activity modification and a shot of cortisone as well as physical therapy. She has given up bowling for now giving it time to settle down. She comes in today stating that she has had quite a bit of relief still has some pain with certain motions but overall doing much better. Previous x-rays show severe degenerative AC joint arthritis with hypertrophic changes. Glenohumeral joint also shows a very small hint of a minor spur at the inferior surface of the humeral head otherwise unremarkable. Otherwise no severe osteoarthritis of the glenohumeral joint is noted. She comes in today for recheck and evaluation. The patient also comes in today for new problem she has pain in both knees occasionally. Some days it is worse than others. She states she has not had a shot of cortisone for 4-5 years. She wanted to have her knees checked out today as well. We got new x-rays today which show essentially qjtq-ml-vlvt changes in the medial and patellofemoral compartments she has fairly significant osteoarthritis both knees right slightly worse than left. If she overdoes it she will get some aching pain medially and anteriorly she states today is a good day for her knees really are not bothering her too much they have been lately however. She comes in requesting evaluation and possible treatment of both knees if necessary. RY Kaur [address], [facility] [address], [place], [address], [place] [employer] [facility] 10/16/2024 12:32:19 OBGyn Episode No OBEpisode recorded.
[2025-02-13 10:38] VITALS: BP 146/78; PULSE 125; RESP 20; TEMP 36.3; O2SAT 89; O2SAT 98
--- NOTE | 2025-02-13 10:44 | ED.SOB ---
HPI - SOB/Dyspnea General Chief Complaint: Shortness of Breath/Dyspnea Stated Complaint: breathing issue Source: patient Mode of arrival: ambulatory Limitations: no limitations History of Present Illness HPI Narrative: 89 y/o female with hx DM and HTN presented for c/o trouble breathing. Endorses this is worsening for the past year, but daughter brought her in today because she is short of breath with very minimal exertion. Also reports frequent belching and post nasal drainage. Denies associated chest pain, palpitations, dizziness, fatigue, cough, n/v/d/f/c. Pt states she has been taking cough medication anyway (Diabetic Tussin). States she has had shortness of breath in the past and has seen cardiology but was told heart is normal. Related Data Home Medications ?Medication ?Instructions ?Recorded ?Confirmed ?Last Taken ?Type magnesium oxide 500 mg capsule 500 mg PO DAILY 08/16/20 09/02/24 Unknown History coenzyme Q10 200 mg/gram oral mg PO 08/18/24 09/02/24 Unknown History powder (H2Q CoQ10) selyjzif-pebh-ccky 8 mg-folic 400 1 tablet PO DAILY 08/18/24 09/02/24 Unknown History mcg-K 50 mcg-lutein 300 mcg tablet (Centrum Silver Women) omega 9-zjh-aoo-fish oil 1,200 mg cap PO 08/18/24 09/02/24 Unknown History (144 mg-216 mg) capsule (Fish Oil) Allergies Allergy/AdvReac Type Severity Reaction Status Date / Time clindamycin Allergy Mild Rash Verified 09/02/24 07:14 colesevelam Allergy Mild Rash Verified 09/02/24 07:14 pravastatin Allergy Mild muscle Verified 09/02/24 07:14 aches Xvvkidp-DJL-VdT Reductase Allergy Mild Leg cramp Verified 09/02/24 07:14 Inhibitor (Yaoqrup-Bza-Pag Reductase Inhibitor) Review of Systems Review of Systems: CONSTITUTIONAL: Denies body aches, fever, chills, or sweats. ENT: Denies rhinorrhea, congestion, sore throat, or otalgia. CARDIOVASCULAR: Denies chest pain, palpitations, or edema. RESPIRATORY: Reports sob, denies cough, wheezing. GASTROINTESTINAL: Denies abdominal pain, nausea, vomiting, or diarrhea. SKIN: Denies rash MUSCULOSKELETAL: Denies back pain, joint pain, or myalgia. NEUROLOGIC: Denies headache, numbness, tingling, or weakness. All systems reviewed & are unremarkable except as noted in HPI and below PMFSH Past Medical History Medical History (Updated 02/13/25 @ 10:59 by Angelia Maloney APRN) Chronic kidney disease, stage 2 (mild) GERD without esophagitis Hypothyroidism (acquired) DM w/o complication type II Essential hypertension BMI 34.0-34.9,adult Family History Family History Sibling Family history of lung cancer Father Family history of lung cancer, Onset Age: 56 Social History Social History Smoking status: Never smoker Second hand tobacco smoke exposure: Yes Alcohol intake: current Substance use: never Substance use type: does not use Do You Feel Safe in your Home?: Yes Lack of Transportation: No Lack of Food: Never True Current Housing: I Have Housing Concerned About Future Housing: No Difficulty Paying Gas/Electric Bills: No Difficulty Paying for Meds: No Currently Unemployed: No Education: High School Diploma/GED Difficulty w/ Childcare or Family Care: No Living arrangements: alone Occupation/Education: retired 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 Please see nursing chart for further information. There is no relevant family history pertinent to the presenting complaint Exam Narrative: GENERAL: Well-appearing, in no acute distress. EYES: EOMI. No redness or drainage. Conjunctivae normal. ENT: Mucous membranes pink and moist. No rhinorrhea. CHEST: Lungs clear. Labored with exertion; No respiratory distress, able to speak full sentences. No cough. HEART: Tachycardic and Regular No murmur appreciated. ABDOMEN: Soft, nontender, nondistended, normal active bowel sounds. EXTREMITIES: Normal range of motion. Trace edema. SKIN: Warm, dry, no rash. Capillary refill normal. Normal skin turgor. NEURO: Alert and oriented x3. Gait steady. PSYCH: Normal affect. Course Course Emergency Course: Patient is aware of diagnosis, understands and agrees to treatment plan. Anticipatory guidance given. Patient agrees to follow-up as directed and is aware of reasons to seek care at the emergency department. Portions of this record may have been created with voice recognition software Level of Care: Express Care Visit Vital Signs Vital signs: Vital Signs Temperature 97.4 F L 02/13/25 10:38 Pulse Rate 125 H 02/13/25 10:38 Respiratory Rate 20 02/13/25 10:38 Blood Pressure 146/78 H 02/13/25 10:38 Pulse Oximetry 89 L 02/13/25 10:38 Oxygen Delivery Room Air 02/13/25 10:38 Temperature 97.4 F L 02/13/25 10:38 Pulse Rate 125 H 02/13/25 10:38 Respiratory Rate 20 02/13/25 10:38 Blood Pressure 146/78 H 02/13/25 10:38 Pulse Oximetry 89 L 02/13/25 10:38 Oxygen Delivery Room Air 02/13/25 10:38 MDM - SOB/Dyspnea MDM Narrative Medical decision making narrative: Patient presenting with shortness of breath with exertion. EKG sinus tachycardia 116, O2 sat 89% on room air. 4 L nasal cannula applied, O2 set increased to 94-96% P patient denies chest pain or palpitations, denies cough or fever. Advised ER transfer. Declined ambulance. Differential Diagnosis Differential diagnosis: Likely congestive heart failure, community acquired pneumonia, asthma with exacerbation, pulmonary embolism and other (Angioedema, perforation, asthma, pneumonia, tension pneumothorax, cardiac tamponade SD, pericarditis, pleural effusion, bronchitis, cardiac arrhythmia) ECG Data EKG #1: Attestation: I personally reviewed and interpreted this ECG as follows: (ST 116 NH 178 QRS 90 QT/QTc 431/500 ) ECG completion date: 02/13/25 ECG completion time: 10:38 Prior ECG tracings: not available for review EKG Interpretation: tachycardia and sinus rhythm Discharge Plan Discharge Clinical Impression: ROMERO (dyspnea on exertion) Patient Disposition: Acute Care Hospital Condition: Stable Instructions: Antibiotic Form Patient Language: Sami Prescriptions: No Action magnesium oxide 500 mg capsule 500 mg PO DAILY Centrum Silver Women 8 mg iron-400 mcg-50 mcg tablet 1 tablet PO DAILY H2Q CoQ10 200 mg/gram powder PO omega 5-xyh-mix-fish oil [Fish Oil] 1,200 (144-216) mg capsule PO losartan-hydrochlorothiazide 100-12.5 mg tablet 1 tablet PO DAILY Qty: 90 1RF omeprazole 20 mg capsule,delayed release(DR/EC) 20 mg PO DAILY Qty: 90 1RF metformin 500 mg tablet 500 mg PO DAILY Qty: 90 3RF levothyroxine [Synthroid] 112 mcg tablet See Rx Instructions .ROUTE .COMPLEX Qty: 90 3RF Dose Instruction: TAKE 1 TABLET DAILY Rx Instructions: TAKE 1 TABLET DAILY amlodipine 5 mg tablet 5 mg PO DAILY Qty: 90 3RF Follow-up/Referrals: Mike Quigley DO [Primary Care Provider, Internal Medicine] Time of Disposition: 10:59
--- NOTE | 2025-02-13 11:41 | ECG_ITS ---
Test Date: 2025-02-13 10:38:49 Measurements Intervals [place] Rate: 116 P: 66 [place]: 178 QRS: 64 QRSD: 90 T: 78 QT: 431 QTc: 599 Interpretive Statements SINUS TACHYCARDIA BORDERLINE ST-T WAVE ABNORMALITY- DIFFUSE LEADS BASELINE ARTIFACT- I, II, III, AVR, AVL ABNORMAL ECG No previous ECG available for comparison Electronically Signed On 02-13-2025 15:44:04 CDT by Lupillo Hernandez D.O.
== END 2025-02-13 10:50 | disposition short-term general hospital (02) ==
PROVIDERS: Emergency Provider Nurse Practitioner Family; PCP Internal Medicine
DX: R06.09 Other forms of dyspnea (principal); I12.9 Hypertensive chronic kidney disease with stage 1 through stage 4 chronic kidney disease, or unspecified chronic kidney disease; E11.22 Type 2 diabetes mellitus with diabetic chronic kidney disease; N18.2 Chronic kidney disease, stage 2 (mild); Z79.84 Long term (current) use of oral hypoglycemic drugs; E03.9 Hypothyroidism, unspecified; K21.9 Gastro-esophageal reflux disease without esophagitis
CPT/HCPCS: 93005; 99213; G0463

== ENCOUNTER 2025-02-13 11:16 | Emergency (ER) | payer MEDICARE, OTHER, SELFPAY ==
--- NOTE | ~2025-02-13 | CT_ITS ---
CTA CHEST CLINICAL HISTORY: hypoxic, dyspneic, tachy . COMPARISON: Chest x-ray today TECHNIQUE: Helical CTA performed from thoracic inlet to upper abdomen IV contrast information not listed in PACS Coronal, sagittal reformats. Multiplanar MIPS CT images acquired with automatic exposure control for dose reduction DLP: 660 mGy-cm FINDINGS: Pulmonary arteries: Large saddle PE. Extending into most bilateral segmental branches. Thoracic Aorta: No dissection or aneurysm. Extensive somewhat exophytic noncalcified atherosclerotic plaque along arch. Heart/pericardium: RV/LV ratio: Mildly elevated. Lungs/Pleura: Mild mosaic attenuation. Tracheobronchial tree: Patent. Nodes: No enlarged nodes. Bones: No acute bony abnormality. Soft tissues: Unremarkable. Visualized upper abdomen: Enlarged. Steatosis. Findings conveyed to Dr. Marcela Gaines at 1:42 p.m. EST via telephone by myself. IMPRESSION: 1. Saddle PE extending into most segmental branches bilaterally. Large volume clot. 2. Worrisome for right heart strain. 3. Extensive somewhat exophytic noncalcified atherosclerotic plaque along aortic arch. Reviewed, dictated and finalized at location R. IMPRESSION: 1. Saddle PE extending into most segmental branches bilaterally. Large volume clot. 2. Worrisome for right heart strain. 3. Extensive somewhat exophytic noncalcified atherosclerotic plaque along aort ic arch.
--- NOTE | ~2025-02-13 | XR_ITS ---
Examination: XR chest 1V portable Clinical History: dyspnea, hypoxia Comparison: None Technique: Portable AP Findings: Heart size normal. Lungs clear. Small calcified granuloma right upper lobe. No acute bony abnormality. IMPRESSION: 1. No acute cardiopulmonary findings given portable technique. Reviewed, dictated and finalized at location R.
[2025-02-13 11:22] VITALS: BP 137/76; PULSE 123; RESP 25; O2SAT 91
--- NOTE | 2025-02-13 11:29 | ECG_ITS ---
Test Date: 2025-02-13 11:46:59 Measurements Intervals [place] Rate: 111 P: 48 NM: 177 QRS: 44 QRSD: 79 T: 50 QT: 285 QTc: 388 Interpretive Statements SINUS TACHYCARDIA WITH FREQUENT VENTRICULAR PREMATURE COMPLEXES MINIMAL Q WAVES- INFERIOR LEADS NONSPECIFIC T-WAVE ABNORMALITY- ANTEROLAT/HIGH LAT LEADS ABNORMAL ECG Compared to ECG 02/13/2025 10:38:49 Ventricular premature complex(es) now present Electronically Signed On 02-13-2025 15:54:21 CDT by Lupillo Hernandez D.O.
[2025-02-13 11:58] LABS: Hematocrit 42.9 % (37.0-47.0); Hemoglobin 14.6 g/dL (12.0-15.0); Immature Granulocyte Percent A 0.6 % (0-0.5); Lymphocytes Absolute Auto 1.49 K/mm3 (0.9-3.2); Mean Corpuscular HGB Conc 34.0 g/dl (32-36); Mean Corpuscular Hemoglobin 31.8 pg (26-34); Mean Corpuscular Volume 93.5 fl (80-100); Nucleated Red Blood Cells Absolute Auto 0.000 K/mm3 (0.0-0.012); Nucleated Red Blood Cells Perc 0.0 % (0.0-0.2); Platelet Count Result 248 k/mm3 (150-375); Red Blood Count 4.59 M/mm3 (4.2-5.4); White Blood Count 8.2 K/mm3 (4.5-10.0)
[2025-02-13 12:21] LABS: Alanine Aminotransferase 30 U/L (6-35); Albumin Level 4.4 g/dL (3.5-5.1); Alkaline Phosphatase 96 U/L (38-126); Anion Gap 6 mmol/L (4-12); Aspartate Amino Transferase 37 U/L (14-36); Bilirubin,Total 0.9 mg/dL (0.2-1.3); Blood Urea Nitrogen 28 mg/dL (7-17); Calcium 9.6 mg/dL (8.4-10.2); Carbon Dioxide 22 mmol/L (22-30); Chloride 106 mmol/L (98-107); Estimated Glomerular Filt Rate 40; Glucose 237 mg/dL (65-110); Magnesium 1.9 mg/dL (1.6-2.3); Potassium 5.0 mmol/L (3.4-5.0); Sodium 134 mmol/L (137-145); Total Protein 7.3 g/dL (6.3-8.2)
[2025-02-13] MEDS: HEPARIN SOD/D5W 100 UNITS/ML 25,000 UNITS/250 ML BAG 13 UNITS IV CONT (12:34)
[2025-02-13 12:35] LABS: INR 1.0; Prothrombin Time 13.1 Seconds (11.1-14.7)
[2025-02-13 12:36] LABS: Partial Thromboplastin Time 29.1 Seconds (22.3-36.8)
[2025-02-13 12:37] VITALS: BP 132/91; PULSE 111; RESP 21; O2SAT 98
[2025-02-13 12:37] LABS: Troponin I 0.452 ng/mL (0.000-0.034)
--- OUTSIDE RECORDS SUMMARY | 2025-02-13 12:50 | XMS_ITS | Clinical Summary ---
Author Organization [facility] Address [address] [facility] [place] [address] Care Team Providers Care Post Adoption Coordinator Name Role Phone Unavailable Primary Care Provider Unavailabl e Source Comments [facility] [employer],non-owned Affiliates and Associated Physician Practices is amultiple site organization consisting of ambulatory clinics and hospital sitesin [place], [place], [place] and [place]. This disclosure is being madepursuant to the Care Everywhere program and may not contain all information available regarding this patient. Last updated 18.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
--- OUTSIDE RECORDS SUMMARY | 2025-02-13 12:50 | XMS_ITS | Clinical Summary ---
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
--- OUTSIDE RECORDS SUMMARY | 2025-02-13 12:50 | XMS_ITS | Encounter Summary ---
Author Organization [facility] Address [facility] [place] [address] Care Team Providers Care Tomato Pulper Operator Name Role Phone Blayne Byrnes MD Primary Care Provider [phone] Encounter Details Date Type Department Care Team (Late st Contact Info) Description 10/05/2019 Prep for Procedure [facility] [address] [place], [place] [id number] Daniel Denise MD [address] [facility] [address] [place] [address] Social History Tobacco Use Types Packs/Day [...] DETECTED NOT DETECTED 10/10/2019 1:54 PM CDT [facility] Comment: A Not Detected (negative) test result [...] providers and patients using the following websites: https://www.[employer] Net/home/Covid-19/HCP/QuestIVD/fact- sheet.html https://www.Emefcy.[employer] Net/home/Covid-19/Patients/ QuestIVD/fact-sheet.html This test has been authorized by the FDA under an Emergency Use Authorization (EUA) for use by authorized laboratories. Due to the current public health emergency, [facility] is receiving a high volume of samples [...] about COVID-19 can be found at the [facility] website: www.AnyCloud.[employer]ro[employer] Net/Covid19. Test performed at [facility] [address] [place] [address] Director: BLAYNE MADSEN DO,MPH NASOPHARYNGEAL SWAB / Unknown 10/09/2019 10:39 AM CDT us Daniel Denise MD MICROBIOLOGY - GENERAL ORDERAB LES Final Result [facility] [id number] [place] [address], [place] documented in this encounter Visit Diagnoses Diagnosis Pre-op testing- Primary Preoperative examination, unspecified documented in this encounter Additional Health Concerns Infection Onset Date Last Indicated Resolved Time COVID-19 Rule Out 10/09/2019 10/09/2019 10/10/2019 1:55 PM CDT documented as of this encounter Care Teams Tomato Pulper Operator Relationship Specialty Start Date End Date Blayne Byrnes MD [address] [place] [id number] PCP - General INTERNAL MEDICINE 10/09/19 documented as of this encounter
--- OUTSIDE RECORDS SUMMARY | 2025-02-13 12:50 | XMS_ITS | Encounter Summary ---
Author Organization [facility] Address [address] [facility] [place] [address] Care Team Providers Care Jewelsmith Name Role Phone Unavailable Primary Care Provider Unavailabl e Encounter Details Date Type Department Care Team (Late st Contact Info) Description 02/11/2020 Lab Requisition [facility] [address] [place] [address] Frantz Victoria MD [address] [place] [address] Social History Tobacco Use Types Packs/Day Years Used Date Smoking Tobacco: Never Assessed Comments Unknown Sex and Gender Information Value Date Recorded Sex Assigned at Not on file Legal Sex Female 6:09 PM RN OTOLARYNGOLOGY Gender Identity Not on file Sexual Orientation Not on file documented as of this encounter Plan of Treatment Not on file documented as of this encounter Procedures Procedure Name Priority Date/Time Associated Diagnosis Comments DERMATOPATHOLOGY Routine 02/10/2020 12:0 0 AM CDT documented in this encounter Results * DERMATOPATHOLOGY (02/10/2020 12:00 AM CDT) Case Report Dermatopathology Report Case: [id number] Authorizing Provider: Frantz Victoria MD Collected: 02/10/2020 12:00 AM Ordering Location: [facility] Received: 02/11/2020 11:06 AM [...] punch biopsy measuring 4x4x7 mm, bisected and [id number]. Jar 0. 0 3:36 PM CDT DERMATOPATHOLOGY [...] characteristic determined by the Dermatopathology Laboratory at [facility], directed by Dr. Rupert Sams. These tests need not be, and therefore are not, approved by the [place] Food and Drug Administration. The tests are used for clinical purposes. Billing Codes Specimen Charges Stain Charges 34262 1 0 3:36 PM CDT DERMATOPATHOLOGY LABORATORY Embedded Images 0 3:36 PM CDT DERMATOPATHOLOGY LABORATORY Pathology/Cytolog y TISSUE SPECIMEN FROM SKIN / Unknown 02/10/2020 02/11/2020 11:06 AM CDT Frantz Victoria MD LAB - PATHOLOGY/CYTOLOGY ORD ERABLES Final Result DERMATOPATHOLOGY LABORATORY [facility] - Department of Dermatology [address] [place] [address], [facility] [phone] documented in this encounter Visit Diagnoses Not on filedocumented in this encounter
--- OUTSIDE RECORDS SUMMARY | 2025-02-13 12:50 | XMS_ITS | Encounter Summary ---
Author Organization [facility] Address [address] [facility] [place] [address] Care Team Providers Care Ribbon Weaver Name Role Phone Unavailable Primary Care Provider Unavailabl e Encounter Details Date Type Department Care Team (Late st Contact Info) Description 08/29/2022 Lab Requisition [facility] [address] [place] [id number] Frantz Victoria MD [address] [place] [address] Social History Tobacco Use Types Packs/Day Years Used Date Smoking Tobacco: Never Assessed Comments Unknown Sex and Gender Information Value Date Recorded Sex Assigned at Not on file Legal Sex Female 6:09 PM ENT NURSE Gender Identity Not on file Sexual Orientation Not on file documented as of this encounter Plan of Treatment Not on file documented as of this encounter Procedures Procedure Name Priority Date/Time Associated Diagnosis Comments DERMATOPATHOLOGY Routine 08/28/2022 12:0 0 AM CDT documented in this encounter Results * DERMATOPATHOLOGY (08/28/2022 12:00 AM CDT) Case Report Dermatopathology Report Case: [id number] Authorizing Provider: Frantz Victoria MD Collected: 08/28/2022 12:00 AM Ordering Location: [facility] Received: 08/29/2022 01:47 PM Pathologist: [...] characteristic determined by the Dermatopathology Laboratory at [facility], directed by Dr. Rupert Sams. These tests need not be, and therefore are not, approved by the [place] Food and Drug Administration. The tests are used for clinical purposes. Billing Codes Specimen Charges Stain Charges 83777 54189 1 1 3 3:10 PM CDT DERMATOPATHOLOGY LABORATORY Embedded Images 3:10 PM CDT DERMATOPATHOLOGY LABORATORY Pathology/Cytology TISSUE SPECIMEN FROM SKIN / Unknown 08/28/2022 08/29/2022 1:47 PM CDT Miscellaneous samples (specimen) TISSUE SPECIMEN FROM SKIN / Unknown 08/28/2022 08/29/2022 1:47 PM CDT Frantz Victoria MD LAB - PATHOLOGY/CYTOLOGY ORD ERABLES Final Result DERMATOPATHOLOGY LABORATORY [facility] - Department of Dermatology [facility] [address] [place] [address], [address] [phone] documented in this encounter Visit Diagnoses Not on filedocumented in this encounter
--- OUTSIDE RECORDS SUMMARY | 2025-02-13 12:50 | XMS_ITS | Clinical Summary ---
Author Organization [facility] Address [address], [address] [address] Phone Care Team Providers Care Signal Technician Name Role Phone Blake Laird MD Primary Care Provider [phone] Martín Baker DO Unavailable [phone] Allergies Active Allergy Reactions Criticality Noted Date Comments Clindamycin Unknown 01/15/2017 Medications polyethylene glycol (MIRALAX) Powder Mix the entire bottle with 64 oz of a clear liquid. Use as directed by the office for colonoscopy prep. 255 g 0 6 Active levothyroxine (SYNTHROID) 112 MCG Tablet Take 112 mcg by mouth daily. Active LOSARTAN POTASSIUM-HCTZ PO Take 1 Tab by mouth daily. Active Omeprazole 20 MG Tablet Delayed Response Take 1 Tab by mouth daily. Active Aspirin 81 MG Tablet Take 81 mg by mouth daily. Active fish oil-omega-3 fatty acids 1000 MG Capsule Take 1,000 mg by mouth daily. Active Multiple Vitamins-Minera ls (CENTRUM SILVER PO) Take by mouth. Acti ve Family History Medical History Relation Name Comments Breast Cancer Daughter Lung Cancer Father Heart Disease Mother Lung Cancer Sister Relation Name Status Comments Daughter Father Mother Sister Social History Tobacco Use Types Packs/Day Years Used Date Smoking Tobacco: Never Smokeless Tobacco: Never Alcohol Use Standard Drinks/Week Comments Yes 2 (1 standard drink = 0.6 oz pur e alcohol) Comments Unknown Sex and Gender Information Value Date Recorded Sex Assigned at Not on file Legal Sex Female 11:40 PM CDT Gender Identity Not on file Sexual Orientation Not on file Plan of Treatment Health Maintenance Due Date Last Done Comments Hepatitis C Virus (HCV) Screening 1935 TdaP Immunization 1935 Pneumococcal Immunization (5 0+ years) (1 of 1 - PCV) 09/15/1987 Zoster Immunization (1 of 2) 09/15/1987 Medicare Initial AWV [id number] 09/04/2003 Respiratory Syncytial Virus (RSV) Immunization (Adult) (1 - 1-dose 75+ series) 2012 Influenza Immunization (#1) 2025 SARS-COV-2 Immunization (2 - season) 2025 03/09/2021 Hepatitis B Immunization Aged Out No longer eligible based on patient's age to complete this topic Human Papillomavirus (HPV) Immunization Aged Out No longer eligible b ased on patient's age to complete this topic Meningococcal Immunization (ACWY) Aged Out No longer eligible based on patient's age to complete this topic Rotavirus Immunization Aged Out No lo nger eligible based on patient's age to complete this topic Insurance MEDICARE Care Teams Signal Technician Relationship Specialty Start Date End Date Blake Laird MD [address] [place] [address] PCP - General Internal Medicine 12/26/16 Martín Baker DO [address] [place] [address] Gastroenterology 12/26/16
--- OUTSIDE RECORDS SUMMARY | 2025-02-13 12:50 | XMS_ITS | Clinical Summary ---
Author Organization [facility] Address [address] [place] [address] Care Team Providers Care Quilt Sewer Name Role Phone Blayne Byrnes MD Primary Care Provider [phone] Allergies Active Allergy Reactions Criticality Noted Date [...] OR) Active Magnesium 500 MG Cap Active Sbemilfmv-Nmsotxcezeq-M it D (OSTEO BI-FLEX ONE PER DAY [...] this topic Medical Devices Implanted Type Area University Controller Device Identifier Shelf Expiration Date Model / Serial / Lot Zlboo Implanted:Qty: 1 on 10/12/2019 by Daniel Denise MD at [facility] Left: Eye 01/12/2022 / [id number] / Insurance MEDICARE [employer] Care Teams Quilt Sewer Relationship Specialty Start Date End Date Blayne Byrnes MD [address] [place] [address] PCP - General INTERNAL MEDICINE 10/09/19
[2025-02-13 13:11] VITALS: BP 146/101; PULSE 116; RESP 18; O2SAT 97
--- NOTE | 2025-02-13 13:29 | ED.SOB ---
HPI - SOB/Dyspnea General Chief Complaint: Shortness of Breath/Dyspnea Stated Complaint: SOB Time Seen by Provider: 02/13/25 11:27 History of Present Illness HPI Narrative: Patient here with increasing shortness of breath for the past 1-2 months; no history of heart or lung disease, does not wear oxygen at home. Much worse when she moves. No history of DVT or leg swelling, no recent surgeries Related Data Home Medications ?Medication ?Instructions ?Recorded ?Confirmed ?Last Taken ?Type magnesium oxide 500 mg capsule 500 mg PO DAILY 08/16/20 09/02/24 Unknown History coenzyme Q10 200 mg/gram oral mg PO 08/18/24 09/02/24 Unknown History powder (H2Q CoQ10) uawuwutc-vvvx-sewo 8 mg-folic 400 1 tablet PO DAILY 08/18/24 09/02/24 Unknown History mcg-K 50 mcg-lutein 300 mcg tablet (Centrum Silver Women) omega 8-wcd-rpu-fish oil 1,200 mg cap PO 08/18/24 09/02/24 Unknown History (144 mg-216 mg) capsule (Fish Oil) Allergies Allergy/AdvReac Type Severity Reaction Status Date / Time clindamycin Allergy Mild Rash Verified 02/13/25 11:24 colesevelam Allergy Mild Rash Verified 02/13/25 11:24 pravastatin Allergy Mild muscle Verified 02/13/25 11:24 aches Cyckvbt-OAY-LnJ Reductase Allergy Mild Leg cramp Verified 02/13/25 11:24 Inhibitor (Hblwqsn-Cqp-Csp Reductase Inhibitor) Review of Systems Review of Systems: All systems reviewed & are unremarkable except as noted in HPI and below PMFSH Past Medical History Medical History (Updated 02/13/25 @ 13:29 by Marcela Gaines MD) Chronic kidney disease, stage 2 (mild) GERD without esophagitis Hypothyroidism (acquired) DM w/o complication type II Essential hypertension BMI 34.0-34.9,adult Family History Family History Sibling Family history of lung cancer Father Family history of lung cancer, Onset Age: 56 Social History Social History Smoking status: Never smoker Second hand tobacco smoke exposure: Yes Alcohol intake: current Substance use: never Substance use type: does not use Do You Feel Safe in your Home?: Yes Lack of Transportation: No Lack of Food: Never True Current Housing: I Have Housing Concerned About Future Housing: No Difficulty Paying Gas/Electric Bills: No Difficulty Paying for Meds: No Currently Unemployed: No Education: High School Diploma/GED Difficulty w/ Childcare or Family Care: No Living arrangements: alone Occupation/Education: retired 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 EYES: EOMI, conjunctiva normal ENT: Hearing grossly intact LUNGS: Slightly dyspneic with speaking full sentences HEART: Tachycardic ABD: [Soft], [nontender to palpation] EXT: Normal range of motion; no swelling to either extremity or tenderness SKIN: [No rashes or lesions.] NEURO: [Alert and oriented x 3. No gross focal sensory or strength deficits.] PSYCH: Normal affect Course Vital Signs Vital signs: Vital Signs Pulse Rate 123 H 02/13/25 11:22 Respiratory Rate 25 H 02/13/25 11:22 Blood Pressure 137/76 02/13/25 11:22 Pulse Oximetry 91 02/13/25 11:22 Pulse Rate 116 H 02/13/25 13:11 Respiratory Rate 18 02/13/25 13:11 Blood Pressure 146/101 H 02/13/25 13:11 Pulse Oximetry 97 02/13/25 13:11 MDM - SOB/Dyspnea MDM Narrative Medical decision making narrative: Patient presenting here with increased shortness of breath, on exam she is tachycardic hypoxic, but when she is not moving, she is comfortable on 2 L of oxygen. Denies any chest pain or back pain whatsoever. Well-appearing here, I am highly concerned for possible PE, versus new onset heart failure, workup initiated. EKG - 12-Lead: Performed at 1146. Interpreted by me. [Sinus rhythm]. Rate 111. [Normal] axis. NM-interval 177. QRS duration 79. QTc 388. PVC present in some T-wave flattening and inversion in lateral lead. Impression: No EKG evidence of acute ischemia or dysrhythmia. CT PE on my independent interpretation unfortunately is showing large saddle PE, I have started heparin drip, discussed findings with patient and family and need for transfer for possible clot retrieval they are agreeable to this. Troponin also very elevated though I suspect this is from this saddle PE and she will is already on heparin drip, no obvious STEMI on EKG and she has no chest pain whatsoever. Started with [facility] per pt preference; no callback after 1hr so tried [facility], accepted by Dr Boyer hospitalist at [facility], they do have beds avail for today. Updated pt/family. Lab Data 02/13/25 11:50 02/13/25 12:05 Labs: Lab Results 02/13/25 02/13/25 Range/Units 11:50 12:05 WBC 8.2 (4.5-10.0) K/mm3 RBC 4.59 (4.2-5.4) M/mm3 Hgb 14.6 (12.0-15.0) g/dL Hct 42.9 (37.0-47.0) % MCV 93.5 (80-100) fl MCH 31.8 (26-34) pg MCHC 34.0 (32-36) g/dl RDW 12.9 (11.5-14.5) % Plt Count 248 (150-375) k/mm3 MPV 10.9 H (7.4-10.4) fl Immature Gran % (Auto) 0.6 H (0-0.5) % Neut % (Auto) 72.2 (45.5-73.1) % Lymph % (Auto) 18.1 L (18.3-44.2) % [place] % (Auto) 6.7 (2.6-8.5) % Eos % (Auto) 1.5 (0-4.4) % Baso % (Auto) 0.9 (0.2-1.2) % Lymph # (Auto) 1.49 (0.9-3.2) K/mm3 [place] # (Auto) 0.6 (0.1-0.6) K/mm3 Eos # (Auto) 0.1 (0-0.3) K/mm3 Baso # (Auto) 0.1 (0.0-0.1) K/mm3 Abs Immat Gran (auto) 0.05 H (0.00-0.031) K/mm3 Absolute Neuts (auto) 5.9 (1.3-6.7) K/mm3 Absolute Nucleated RBC 0.000 (0.0-0.012) K/mm3 Nucleated RBC % 0.0 (0.0-0.2) % PT 13.1 (11.1-14.7) Seconds INR 1.0 APTT 29.1 (22.3-36.8) Seconds D-Dimer 3.26 H (<0.48) ug/mL Sodium 134 L (137-145) mmol/L Potassium 5.0 (3.4-5.0) mmol/L Chloride 106 (98-107) mmol/L Carbon Dioxide 22 (22-30) mmol/L Anion Gap 6 (4-12) mmol/L BUN 28 H (7-17) mg/dL Creatinine 1.26 H 1.40 H (0.7-1.0) mg/dL Estim Creat Clear Calc Not Reportable Not Reportable Estimated GFR 40 L 36 L (59 - ) Glucose 237 H (65-110) mg/dL Lactic Acid 3.0 H (0.7-2.0) mmol/L Calcium 9.6 (8.4-10.2) mg/dL Magnesium 1.9 (1.6-2.3) mg/dL Total Bilirubin 0.9 (0.2-1.3) mg/dL AST 37 H (14-36) U/L ALT 30 (6-35) U/L Alkaline Phosphatase 96 (38-126) U/L Troponin I 0.452 H* (0.000-0.034) ng/mL Total Protein 7.3 (6.3-8.2) g/dL Albumin 4.4 (3.5-5.1) g/dL Critical Care Time Critical Care Time Critical Care Time: Yes Total Critical Care Time: 31 Discharge Plan Discharge Clinical Impression: Pulmonary embolism Patient Disposition: Acute Care Hospital Condition: Critical Patient Language: Turkish Prescriptions: No Action magnesium oxide 500 mg capsule 500 mg PO DAILY Centrum Silver Women 8 mg iron-400 mcg-50 mcg tablet 1 tablet PO DAILY H2Q CoQ10 200 mg/gram powder PO omega 8-onj-uxv-fish oil [Fish Oil] 1,200 (144-216) mg capsule PO losartan-hydrochlorothiazide 100-12.5 mg tablet 1 tablet PO DAILY Qty: 90 1RF omeprazole 20 mg capsule,delayed release(DR/EC) 20 mg PO DAILY Qty: 90 1RF metformin 500 mg tablet 500 mg PO DAILY Qty: 90 3RF levothyroxine [Synthroid] 112 mcg tablet See Rx Instructions .ROUTE .COMPLEX Qty: 90 3RF Dose Instruction: TAKE 1 TABLET DAILY Rx Instructions: TAKE 1 TABLET DAILY amlodipine 5 mg tablet 5 mg PO DAILY Qty: 90 3RF Follow-up/Referrals: Mike Quigley DO [Primary Care Provider, Internal Medicine]
[2025-02-13 13:32] LABS: Estimated Glomerular Filt Rate 36
[2025-02-13 14:00] VITALS: BP 122/94; PULSE 108; RESP 20; O2SAT 97
[2025-02-13 14:44] VITALS: BP 148/73; PULSE 107; RESP 21; O2SAT 96
== END 2025-02-13 15:16 | disposition short-term general hospital (02) ==
PROVIDERS: Emergency Provider Emergency Medicine; PCP Internal Medicine
DX: I26.99 Other pulmonary embolism without acute cor pulmonale (principal); E11.22 Type 2 diabetes mellitus with diabetic chronic kidney disease; I12.9 Hypertensive chronic kidney disease with stage 1 through stage 4 chronic kidney disease, or unspecified chronic kidney disease; N18.2 Chronic kidney disease, stage 2 (mild); E03.9 Hypothyroidism, unspecified; K21.9 Gastro-esophageal reflux disease without esophagitis; Z77.22 Contact with and (suspected) exposure to environmental tobacco smoke (acute) (chronic); Z79.84 Long term (current) use of oral hypoglycemic drugs; Z79.899 Other long term (current) drug therapy; R00.0 Tachycardia, unspecified; R94.31 Abnormal electrocardiogram [ECG] [EKG]
CPT/HCPCS: 36415; 71045; 71275; 80053; 83605; 83735; 84484; 85025; 85380; 85610; 85730; 93005; 96365; 96366; 99213; 99291; G0463; J1644; Q9967